=== PATIENT | female | born 1955 | race Caucasian/White ===

== ENCOUNTER 2020-05-23 17:36 | Observation (INO) ==
[2020-05-23] MEDS ORDERED: ONDANSETRON 4 MG/2 ML VIAL IV STA (18:22)
[2020-05-23] MEDS ORDERED: HYDROmorphone 2 MG/1 ML VIAL IV STA ×3 (18:22→22:55)
[2020-05-23 18:40] LABS: Basophils # 0.1 10*3/uL (0.0-0.2); Basophils % 0.4 % (0.0-0.8); Eosinophils # 0.3 10*3/uL (0.0-0.87); Eosinophils % 1.9 % (0.00-10.9); Hematocrit 41.5 VOL% (35.7-47.0); Hemoglobin 13.7 GM/DL (12.0-16.0); Immature Granulocytes % 0.4 %; Immature Granulocytes Absolute 0.05 #; Lymphocytes # 4.3 10*3/uL (1.4-4.0); Mean Corpuscular Volume 100.2 FL (87-102); Mean Platelet Volume 10.6 FL (9.6-12.0); Monocytes % 9.6 % (1.7-12.7); Neutrophils % 55.7 % (38.7-73.9); Platelet Count 340 T/CUMM (130-400); Red Blood Count 4.14 MC/CUMM (3.8-5.5); Red Cell Distribution Width 13.3 % (9.3-17.3); White Blood Count 13.4 T/CUMM (4-12)
[2020-05-23 18:47] LABS: PT Patient Result 10.3 SECS (9.8-11.9)
[2020-05-23 18:50] LABS: Alanine Aminotransferase 18 U/L (13-56); Albumin 3.8 G/DL (3.4-5.0); Alkaline Phosphatase 95 U/L (45-117); Aspartate Amino Transferase 29 U/L (0-37); Bilirubin,Total < 0.39 MG/DL (0.2-1.0); Blood Urea Nitrogen 8 MG/DL (7-18); Calcium 9.1 MG/DL (8.5-10.1); Estimated Glom Filtration Rate 82 ML/MIN; Glucose 120 MG/DL (74-106); Osmolality,Calculated 279.3 MOS/KG (273-304); Total Protein 7.2 G/DL (6.4-8.3)
[2020-05-23 19:21] LABS: Eosinophils 3 % (0-10); Lymphocytes 29 % (20-55); Platelet Estimate Normal; Segmented Neutrophils 60 % (50-85); Total Cells Counted 100
[2020-05-23] MEDS ORDERED: HYDROmorphone 2 MG/1 ML VIAL IV ONE (21:07)
[2020-05-23] MEDS ORDERED: ONDANSETRON 4 MG/2 ML VIAL IV PRN (22:55)
[2020-05-23] MEDS ORDERED: DEXTROSE 50% 25 GM/50 ML SYRINGE IV PRN (22:55)
[2020-05-23] MEDS ORDERED: NICOTINE 21 MG/24 HR PATCH TRANSDERM PRN (22:55)
[2020-05-23] MEDS ORDERED: GLUCAGON 1 MG VIAL IM PRN (22:55)
[2020-05-23] MEDS ORDERED: DOCUSATE SODIUM 100 MG CAPSULE PO PRN (22:55)
[2020-05-23] MEDS ORDERED: ENOXAPARIN 40 MG/0.4 ML SYRINGE SUBCUT SCH (23:00)
[2020-05-23] MEDS ORDERED: ALBUTEROL/IPRATROPIUM 3 ML NEB RESP TX PRN (23:28)
[2020-05-24 02:35] LABS: Bilirubin,Urine Negative (Negative); Blood, Urine Negative (Negative); Glucose,Urine (UA) Negative (Negative); Ketones,Urine Negative (Negative); Nitrite,Urine Negative (Negative); Protein,Urine Negative; RBC,Urine 1 /HPF (0-4); Squamous Epithelial Cell,Urine Occasional /HPF (0-10); Urine Appearance CLEAR (Clear); Urine Color Yellow (Yellow); Urine Specific Gravity 1.059 (1.001-1.035); Urine Urobilinogen < 2.0 EU/DL (0.2-1.0); WBC,Urine 3 /HPF (0-6)
[2020-05-24] MEDS: HYDROmorphone 2 MG/1 ML VIAL IV PRN ×2 (03:00→08:40)
[2020-05-24 04:43] LABS: Basophils % 0.3 % (0.0-0.8); Eosinophils # 0.3 10*3/uL (0.0-0.87); Eosinophils % 2.4 % (0.00-10.9); Hematocrit 40.5 VOL% (35.7-47.0); Hemoglobin 13.2 GM/DL (12.0-16.0); Immature Granulocytes % 0.3 %; Immature Granulocytes Absolute 0.04 #; Lymphocytes # 2.7 10*3/uL (1.4-4.0); Lymphocytes % 23.2 % (21.3-54.2); Mean Corpuscular HGB Conc 32.6 GM/DL (32-36); Mean Corpuscular Volume 102.8 FL (87-102); Monocytes % 10.8 % (1.7-12.7); Platelet Count 256 T/CUMM (130-400); Red Blood Count 3.94 MC/CUMM (3.8-5.5); Red Cell Distribution Width 13.2 % (9.3-17.3); White Blood Count 11.6 T/CUMM (4-12)
[2020-05-24 05:08] LABS: Calcium 8.8 MG/DL (8.5-10.1); Osmolality,Calculated 280.3 MOS/KG (273-304)
[2020-05-24] MEDS: ACETAMINOPHEN 325 MG TABLET PO SCH ×3 (05:12→10:28)
[2020-05-24] MEDS ORDERED: POTASSIUM CHLORIDE 20 MEQ TABLET PO PRN (07:37)
[2020-05-24] MEDS ORDERED: CELECOXIB 200 MG CAPSULE PO SCH (08:00)
[2020-05-24] MEDS ORDERED: PANTOPRAZOLE 40 MG TABLET PO SCH (09:00)
[2020-05-24 14:55] VITALS: BP 140/73
[2020-05-24] MEDS ORDERED: DOXYLAMINE SUCCINATE 25 MG PO PRN (15:04)
[2020-05-24] MEDS ORDERED: DULoxetine 30 MG CAPSULE PO SCH (21:00)
[2020-05-24] MEDS ORDERED: buPROPion SR 150 MG TABLET PO SCH (21:00)
[2020-05-24] MEDS ORDERED: GABAPENTIN 800 MG PO SCH (21:00)
[2020-05-24] MEDS ORDERED: ATORVASTATIN 10 MG TABLET PO SCH (21:00)
[2020-05-24] MEDS ORDERED: tiZANidine 4 MG TABLET PO SCH (21:00)
[2020-05-24] MEDS ORDERED: traZODone 50 MG TABLET PO SCH (21:00)
[2020-05-24] MEDS ORDERED: OLANZapine 2.5 MG TABLET PO SCH (21:00)
[2020-05-25] MEDS ORDERED: POLYCARBOPHIL 625 MG TABLET PO SCH (09:00)
[2020-05-25] MEDS ORDERED: DOCUSATE SODIUM 100 MG CAPSULE PO SCH (09:00)
== END 2020-05-24 15:42 | disposition left against medical advice (07) ==
LOC: N.ED 17:36 → N.EDINP 17:36
PROVIDERS: ADMIT Internal Medicine; ATTEND Internal Medicine